=== PATIENT | male | born 1955 | race Caucasian/White ===

== ENCOUNTER 2019-12-14 13:00 | Outpatient (CLI) | payer MEDICARE, OTHER, SELFPAY ==
[2019-12-14 13:41] LABS: Prostate Specific Antigen < 0.02 ng/mL (0-4)
== END 2019-12-14 13:01 | disposition home or self-care (01) ==
LOC: LAB 12-15 08:03
PROVIDERS: Family Provider Family Medicine; PCP Family Medicine; Referring Provider Urology; Visit Provider Radiology Radiation Oncology
DX: C61 Malignant neoplasm of prostate (principal)
CPT/HCPCS: 84153

== ENCOUNTER → 2020-06-15 10:33 | Outpatient (BNVA) | payer MEDICARE, OTHER, SELFPAY | PROVIDERS: Family Provider Family Medicine; PCP Family Medicine; Visit Provider Urology | DX: C61 Malignant neoplasm of prostate (principal); E29.1 Testicular hypofunction | CPT/HCPCS: 81001; 84153 ==

== ENCOUNTER → 2020-12-14 09:54 | Outpatient (BNVA) | payer MEDICARE, OTHER, SELFPAY | PROVIDERS: Family Provider Family Medicine; PCP Family Medicine; Visit Provider Nurse Practitioner Family | DX: E29.1 Testicular hypofunction (principal); C61 Malignant neoplasm of prostate | CPT/HCPCS: 81003; 84153; 84403 ==

== ENCOUNTER → 2021-07-11 08:14 | Outpatient (BNVA) | payer MEDICARE, OTHER, SELFPAY | PROVIDERS: Family Provider Family Medicine; PCP Family Medicine; Visit Provider Urology | DX: C61 Malignant neoplasm of prostate (principal); R39.9 Unspecified symptoms and signs involving the genitourinary system; E29.1 Testicular hypofunction | CPT/HCPCS: 81003; 84403; G0103 ==

== ENCOUNTER → 2022-01-08 09:09 | Outpatient (BNVA) | payer MEDICARE, OTHER, SELFPAY | PROVIDERS: PCP Family Medicine; Visit Provider Urology | DX: C61 Malignant neoplasm of prostate (principal); R39.9 Unspecified symptoms and signs involving the genitourinary system; N32.9 Bladder disorder, unspecified; E29.1 Testicular hypofunction; R31.0 Gross hematuria | CPT/HCPCS: 52000; 81003; 84153; 84403; 99214 ==

== ENCOUNTER 2022-01-17 10:49 | Outpatient (CLI) | payer MEDICARE, OTHER, SELFPAY ==
--- NOTE | 2022-01-17 12:00 | CT_ITS ---
WS: [id number] CT ABDOMEN PELVIS TECHNIQUE: Noncontrast CT of the abdomen and pelvis with coronal and sagittal reformatted images. CLINICAL INFORMATION: PROSTATE CANCER COMPARISON: CT 2016 DLP: 1245.[address] scans at [facility] use at least one of these dose optimization techniques: automated e xposure control; mA and/or kV adjustment per patient size (includes targeted exams where dose is matc hed to clinical indication); or iterative reconstruction. FINDINGS: Noncontrast liver is normal. Prostate calcification. Mild thickening of the seminal vesicles bilater ally. Prostate measures 2.6 x 2.9 CM. No hydronephrosis in RIGHT kidney. RIGHT renal cyst measuring 4 .1 x 4.2 CM. 3.6 mm calculus in the distal RIGHT ureter although no significant ureterectasis or hydr onephrosis. This is new from 2016. LEFT renal peripelvic cyst versus dilated LEFT renal pelvis is unchanged in appearance since 2016. LE FT ureter is decompressed. Bilateral renal cysts. 9 mm RIGHT cortical cyst too small to definitively characterize but may represent hemorrhagic or proteinaceous cyst. Noncontrast bladder appears normal. A few prominent lymph nodes in the kartik hepatis and upper abdome n appear unchanged since 2016. Normal GE junction. Lung bases are well aerated. Adrenal glands are normal. Fatty atrophy of the pancreas. Normal caliber abdominal aorta. Fat-contain ing umbilical hernia is unchanged. Sigmoid diverticulosis. No evidence of acute diverticulitis. Incid ental fat-containing inguinal hernias. Slightly prominent RIGHT inguinal lymph node measuring 12 mm i ndeterminate but may be reactive. No visualized blastic bony lesions. No other significant changes co mpared to previous. CT/CT abdomen pelvis con [id number] IMPRESSION: 1. 3.6 mm calculus in the distal RIGHT ureter proximal to the UVJ is new idonne red to 2016. No significant RIGHT hydronephrosis or ureterectasis. 2. LEFT kidney is unchanged in appearance with LEFT peripelvic cyst or dilated LEFT renal pelvis. This is unchanged 3. Bilateral renal cysts. 4. 9 mm cortical cyst lower pole RIGHT kidney with increased attenuation may b e hemorrhagic or proteinaceous but too small to definitively characterize. 5. Fat-containing umbilical hernia is unchanged. 6. A few prominent lymph nodes in the kartik hepatis and upper abdomen are unch anged since 2016 7. Slightly prominent inguinal lymph node measuring 12 mm indeterminate but ma y be reactive. 8. No other significant findings.
== END 2022-01-17 10:50 | disposition home or self-care (01) ==
LOC: RAD 10:56
PROVIDERS: PCP Family Medicine; Visit Provider Urology
DX: C61 Malignant neoplasm of prostate (principal); N20.1 Calculus of ureter; N28.1 Cyst of kidney, acquired; K42.9 Umbilical hernia without obstruction or gangrene; R39.9 Unspecified symptoms and signs involving the genitourinary system; R31.0 Gross hematuria; N32.9 Bladder disorder, unspecified
CPT/HCPCS: 74176; 81003; 99214

== ENCOUNTER 2022-02-13 12:26 | Inpatient (IN) | payer MEDICARE, OTHER, SELFPAY ==
[2022-02-12 13:32] VITALS: BMI 36.3
[2022-02-13] VITALS (20 sets, daily range): BP systolic 132–200; BP diastolic 83–109; PULSE 69–131; RESP 16–18; TEMP 36.2–36.8; O2SAT 92–98; BMI 36.3
--- NOTE | 2022-02-13 | SCC_ITS ---
Procedure done: 1. Cystoscopy, transurethral section of bladder tumor, left lateral wall, small 2. Right retrograde ureteropyelogram 3. Ureteroscopy, laser lithotripsy and stent 49.7 seconds of fluoroscopic guidance, for a cumulative dose of 20.66 mGy, was provided to Dr. Whipple by the radiology department. C-arm images of the abdomen were saved for the patient's permanent record. [facility]
--- NOTE | 2022-02-13 06:40 | XR_ITS ---
WS: [id number] Exam: XR KUB [id number] Date/Time of Exam: 02/13/2022 6:47 AM Reason For Exam: Right distal ureteral stone No bowel obstruction or free air. Bilateral pelvic calcifications are noted which are nonspecific. No sign of organ enlargement. Degenerative changes and spondylosis of the lower thoracic and lumbar spi ne. XR/XR KUB [id number] IMPRESSION: 1. Nonspecific bilateral pelvic calcifications. 2. No acute abdominal finding.
--- NOTE | 2022-02-13 06:40 | SC_ITS ---
WS: [id number] INTRAOPERATIVE TECHNIQUE: 10 Spot fluoroscopic images for intraoperative purposes. FLUOROSCOPY TIME: 49.7 seconds CLINICAL INFORMATION: Right distal ureteral stone COMPARISON: None. FINDINGS: RIGHT ureteroscopy. Filling defects in the distal RIGHT ureter compatible with previously described c alculi. Deployment of RIGHT double-J ureteral stent. SC/C-arm FL for Urology IMPRESSION: Images obtained for intraoperative purposes.
--- NOTE | 2022-02-13 06:40 | ECG_ITS ---
[facility] Test Date: 2022-02-13 Pat Name: Vicente Cazares Department: Room: Gender: Male [employer]: : 1955 Requested By: Андрей Whipple Order Number: [id number] Dallin MD: Cecil Mathew M.D. Measurements Intervals [place] Rate: 59 P: [place]: QRS: 55 QRSD: 95 T: -18 QT: 429 QTc: 426 Interpretive Statements ATRIAL FIBRILLATION WITH SLOW VENTRICULAR RESPONSE ABNORMAL QRS-T ANGLE [QRS-T AXIS DIFFERENCE > 60] No previous ECG available for comparison Electronically Signed On 02-13-2022 20:18:18 CDT by Cecil Mathew M.D. [id number]
[2022-02-13 07:31] LABS: Glucose Point of Care 187 mg/dL (70-110)
[2022-02-13] MEDS: sodium chloride 0.9% 1,000 ML 30 ML IV (07:31)
[2022-02-13 07:43] LABS: Basophils # 0.1 10^3/uL (0.0-0.1); Basophils % 1.2 %; Eosinophils # 0.2 10^3/uL (0.0-0.8); Hematocrit 39.4 % (42.0-52.0); Hemoglobin 12.7 g/dL (11.7-16.6); Lymphocytes # 1.2 10^3/uL (0.8-4.8); Lymphocytes % 20.6 %; Mean Corpuscular HGB Conc 32.2 g/dL (30.0-36.0); Mean Corpuscular Hemoglobin 29.4 pg (28.0-34.0); Mean Corpuscular Volume 91.2 fl (80-94); Mean Platelet Volume 11.1 fL (7.4-10.4); Monocytes # 0.4 10^3/uL (0.2-0.9); Monocytes % 7.4 %; Neutrophils % 67.4 %; Nucleated Red Blood Cells % 0 %; Platelet Count 213 10^3/cmm (130-400); Red Blood Count 4.32 10^6/uL (4.1-5.3); Red Cell Distribution Width 13.5 % (12.1-15.1); White Blood Count 5.6 10^3/uL (4.0-10.0)
--- NOTE | 2022-02-13 07:45 | ANES.PREANE2 ---
Pre-Anesthetic Assessment Height/Weight: Height 1.77 m Weight 113.398 kg Temp Pulse Resp BP Pulse Ox 97.1 F L 69 16 151/95 97 02/13/22 07:05 02/13/22 07:05 02/13/22 07:05 02/13/22 07:05 02/13/22 07:05 Preop Diagnosis: Bladder lesion Operation Date: 02/13/22 08:10 Proposed Procedures s Transurethral Resection Bladder Tumor(Not Applicable) - Андрей Whipple MD p CYSTOSCOPY TRANSURETHRAL RESECTION OF BLADDER TUMOR 25364/N32.9(Not Applicable) - Андрей Whipple MD Last intake: Intake Last Liquid Date 02/13/22 Last Liquid Time 06:30 Last Solid Date 02/12/22 Last Solid Time 19:30 Medications/Allergies Home Medications Medication Instructions Recorded Confirmed Last Taken Type aspirin 81 mg tablet,delayed 81 mg PO DAILY 12/15/19 02/12/22 02/07/22 History release (Adult Low Dose Aspirin) digoxin 250 mcg (0.25 mg) tablet 250 mcg PO DAILY 12/15/19 02/13/22 02/12/22 History (Digox) diltiazem HCl 240 mg 240 mg PO DAILY 12/15/19 02/13/22 02/12/22 History capsule,extended release 24 hr metoprolol tartrate 100 mg tablet 200 mg PO DAILY 12/15/19 02/13/22 02/12/22 History (Lopressor) quinapril 20 1 tab PO DAILY 12/15/19 02/13/22 02/12/22 History mg-hydrochlorothiazide 12.5 mg tablet simvastatin 20 mg tablet 20 mg PO DAILY 12/15/19 02/13/22 02/12/22 History metformin 500 mg tablet 1,500 mg PO DAILY tab 07/11/21 02/13/22 02/12/22 History warfarin 4 mg tablet 4 mg PO DAILY 07/11/21 02/12/22 02/07/22 History Allergies Allergy/AdvReac Type Severity Reaction Status Date / Time codeine Allergy swelling Verified 02/12/22 13:29 Penicillins Allergy swelling Verified 02/12/22 13:29 Current Medications Generic Name Dose Route Start Last Admin Trade Name Freq PRN Reason Stop Dose Admin Sodium Chloride 1,000 mls @ 30 mls/hr 02/13/22 06:45 02/13/22 07:31 Sodium Chloride 0.9% IV 02/14/22 06:44 30 mls/hr .Q24H LISSETTE Administration PFSH Anesthesia Medical History Hypogonadism male Lower urinary tract symptoms Prostate cancer Surgical History H/O shoulder surgery S/P appendectomy Family History Mother , 80 [place] CAD (coronary artery disease) Father , 62 CAD (coronary artery disease) Social History Smoking and tobacco status: former smoker Alcohol intake: never Adopted: No Caregiver/support person: No Lives independently: No Household members: spouse Marital status: Current occupational status: retired History of recent travel: No Current gender identity: Male Data Anesthesia : 02/13/22 07:19 02/13/22 07:19 Short CBC 02/13/22 Range/Units 07:19 WBC 5.6 (4.0-10.0) 10^3/uL Hgb 12.7 (11.7-16.6) g/dL Hct 39.4 L (42.0-52.0) % MCV 91.2 (80-94) fl Plt Count 213 (130-400) 10^3/cmm Neut % (Auto) 67.4 % Neut # (Auto) 3.80 (1.8-7.7) 10^3/uL Cardiac Studies: No Data to Display
--- NOTE | 2022-02-13 07:49 | ANES.PREANE2 ---
Pre-Anesthetic Assessment Height/Weight: Height 1.77 m Weight 113.398 kg Temp Pulse Resp BP Pulse Ox 97.1 F L 69 16 151/95 97 02/13/22 07:05 02/13/22 07:05 02/13/22 07:05 02/13/22 07:05 02/13/22 07:05 Preop Diagnosis: Bladder lesion Operation Date: 02/13/22 08:10 Proposed Procedures s Transurethral Resection Bladder Tumor(Not Applicable) - Андрей Whipple MD p CYSTOSCOPY TRANSURETHRAL RESECTION OF BLADDER TUMOR 82211/N32.9(Not Applicable) - Андрей Whipple MD Last intake: Intake Last Liquid Date 02/13/22 Last Liquid Time 06:30 Last Solid Date 02/12/22 Last Solid Time 19:30 CV/HEM Atrial Fibb Prostate CA Metabolic DM II, Dyslipidemia Anesthetic Plan ASA status: 3 Medications/Allergies Home Medications Medication Instructions Recorded Confirmed Last Taken Type aspirin 81 mg tablet,delayed 81 mg PO DAILY 12/15/19 02/12/22 02/07/22 History release (Adult Low Dose Aspirin) digoxin 250 mcg (0.25 mg) tablet 250 mcg PO DAILY 12/15/19 02/13/22 02/12/22 History (Digox) diltiazem HCl 240 mg 240 mg PO DAILY 12/15/19 02/13/22 02/12/22 History capsule,extended release 24 hr metoprolol tartrate 100 mg tablet 200 mg PO DAILY 12/15/19 02/13/22 02/12/22 History (Lopressor) quinapril 20 1 tab PO DAILY 12/15/19 02/13/22 02/12/22 History mg-hydrochlorothiazide 12.5 mg tablet simvastatin 20 mg tablet 20 mg PO DAILY 12/15/19 02/13/22 02/12/22 History metformin 500 mg tablet 1,500 mg PO DAILY tab 07/11/21 02/13/22 02/12/22 History warfarin 4 mg tablet 4 mg PO DAILY 07/11/21 02/12/22 02/07/22 History Allergies Allergy/AdvReac Type Severity Reaction Status Date / Time codeine Allergy swelling Verified 02/12/22 13:29 Penicillins Allergy swelling Verified 02/12/22 13:29 Current Medications Generic Name Dose Route Start Last Admin Trade Name Freq PRN Reason Stop Dose Admin Sodium Chloride 1,000 mls @ 30 mls/hr 02/13/22 06:45 02/13/22 07:31 Sodium Chloride 0.9% IV 02/14/22 06:44 30 mls/hr .Q24H LISSETTE Administration PFSH Anesthesia Medical History Hypogonadism male Lower urinary tract symptoms Prostate cancer Surgical History H/O shoulder surgery S/P appendectomy Family History Mother , 80 [place] CAD (coronary artery disease) Father , 62 CAD (coronary artery disease) Social History Smoking and tobacco status: former smoker Alcohol intake: never Adopted: No Caregiver/support person: No Lives independently: No Household members: spouse Marital status: Current occupational status: retired History of recent travel: No Current gender identity: Male Data Anesthesia : 02/13/22 07:19 02/13/22 07:19 Short CBC 02/13/22 Range/Units 07:19 WBC 5.6 (4.0-10.0) 10^3/uL Hgb 12.7 (11.7-16.6) g/dL Hct 39.4 L (42.0-52.0) % MCV 91.2 (80-94) fl Plt Count 213 (130-400) 10^3/cmm Neut % (Auto) 67.4 % Neut # (Auto) 3.80 (1.8-7.7) 10^3/uL Cardiac Studies: No Data to Display
[2022-02-13 08:03] LABS: Anion Gap 15.2 (5-19); Blood Urea Nitrogen 16 mg/dL (8-23); Calcium 9.7 mg/dL (8.5-10.5); Carbon Dioxide 25 mmol/L (22-29); Chloride 99 mmol/L (98-107); Glomerular Filtration Rate 96.1 mL/min (90-130); Glucose 170 mg/dL (65-115); Osmolality Calculated 285 mOsm/kg (285-295); Potassium 4.2 mmol/L (3.5-5.1); Sodium 135 mmol/L (136-145)
--- NOTE | 2022-02-13 08:33 | W.PM.OPSUD ---
Surgery/Procedure H&P Update DATE OF PROCEDURE: February 13, 2022 DATE H&P PERFORMED: 01/17/22 H&P UPDATE INFORMATION: I have reviewed H&P completed within last 30 days, I have examined patient prior to procedure, Changes to prior documentation as noted here and H&P is in [facility] EMR on date indicated CHANGES TO PREVIOUS DOCUMENTATION: KUB today shows what appears to be a stone still in the area of the right distal ureter. Will follow through with cystoscopy retrograde ureteroscopy laser and stent if that is confirmed. PREOP DIAGNOSIS: Bladder lesion PLANNED PROCEDURE: Operation Date: 02/13/22 08:10 Proposed Procedures s Transurethral Resection Bladder Tumor(Not Applicable) - Андрей Whipple MD p CYSTOSCOPY TRANSURETHRAL RESECTION OF BLADDER TUMOR 84302/N32.9(Not Applicable) - Андрей Whipple MD
--- NOTE | 2022-02-13 08:35 | PM.OP ---
Operative Report Date of procedure: February 13, 2022 Pre-op diagnosis: 1. Newly diagnosed bladder 2. Right distal ureteral stone Post-op diagnosis: 1. Newly diagnosed bladder 2. Right distal ureteral stone Procedure done: 1. Cystoscopy, transurethral section of bladder tumor, left lateral wall, small 2. Right retrograde ureteropyelogram 3. Ureteroscopy, laser lithotripsy and stent Specimens removed/disposition: Left lateral wall bladder tumor Pathology: 1. Bladder tumor, left lateral wall 2. Right ureteral stone fragment Surgeon: Sarabjit Anesthesia: General Estimated blood loss: Minimal Urine output: Not measured Complications: None Findings: 1. Left lateral wall lesion completely resected 2. Right retrograde ureteropyelogram demonstrated stone in the expected position 3. Ureteroscopic laser lithotripsy conducted to fragment the stone into small pieces were flushed from the ureter. 4. 7 [place] by 28 cm double-pigtail stent left indwelling at the completion of the procedure Brief History: Mr. Cazares is a delightful 66-year-old white male status post radiation therapy for prostate cancer with good and durable results. Recently developed gross hematuria. Cystoscopy revealed a suspicious area in the left lateral wall most consistent cystoscopically with TCCA but could not rule out radiation changes. He was scheduled for TURBT. In my initial review of the CT scan I failed to notice that he also had a right distal ureteral stone. There were no obstructive changes. The path report revealed this and I reviewed the films and agree. For that reason he has had a cystoscopy retrograde possible ureteroscopy laser and stent added to his procedure. He is unaware of having passed the stone. He has had no renal colicky symptoms on the right side. The finding of the stone is quite definitive on the CT scan though. KUB done right before the procedure seems to imply that there still is a calcification in that area. I reviewed all of this with the patient and his family and consent was modified to reflect the addition of treatment of the stone. We had spoken about that on the phone prior to today. Plan will be to resect the lesion per protocol and then flushed the bladder with sterile water multiple times before progressing to the stone Procedure: After routine preoperative evaluation examination and obtaining of informed consent he was taken to the operating suite on 02/13/2022 where general anesthesia was administered without difficulty after appropriate timeout was performed, SCDs confirmed to be functioning, preoperative antibiotics administered, beta-osmar protocol confirmed. Prepped and draped in usual sterile fashion in dorsolithotomy position paying careful attention to avoiding pressure points. 21 [place] cystoscope with 30 degree lens was introduced into the urethral meatus and advanced into the bladder without difficulty. The bladder was systematically examined and the lesion on the left lateral wall was confirmed. Photodocumentation was obtained. Location: No stones were seen in the bladder. The urethra was then calibrated with Irwin sounds. The more distally urethra was fairly tight but did dilate well up to 30 [place]ib[place]ian. The resectoscope sheath with visual obturator in place was advanced into well-lubricated urethra and into the bladder without difficulty. The gyrus bipolar system was utilized for resection with a super loop and fulguration with the button probe. The lesion was resected down to its base with sampling of the deeper tissue. Button probe was used to obtain meticulous hemostasis. All the resection and fulguration was done well away from the left ureteral orifice. The bladder was then copiously irrigated with sterile water, filled and then emptied several times. Attention was then directed to the right ureter. An 8 [place] cone-tip catheter was attempted to be intubated into the right ureteral orifice for right retrograde ureteropyelogram but could not be easily passed. A flexible tip guidewire was then advanced into the ureteral orifice just a small distance and an open ended ureteral catheter was advanced just inside the tight ureteral orifice wire removed and RETROGRADE ureteropyelogram performed demonstrating: Filling defect in the distal ureter consistent with a stone seen on CT scan and today's KUB. Ureter proximal to that point was somewhat dilated. The ureter distal to the stone was somewhat narrowed. There was mild dilation of the more proximal pyelocalyceal system with no other obvious stones identified Because of the narrowing of the orifice as well as the distal ureter it was decided to Flexible tip guidewire was then advanced up the RIGHT ureter easily bypassing the stone and curling in the area of the upper pole calyx. Distal ureter was then dilated with a 15 [place]ian 4 cm balloon. The balloon and cath scope was removed. The wire secured to the drapes as a safety wire and then a 7 [place]ian offset semirigid ureteroscope was advanced up the right ureter next to the wire to the stone which was encountered in its expected position. There was mild narrowing just distal to the stone as seen on the retrograde but it was bypassable with the scope. The stone appeared to be about 6 mm in size. It was in fragmented with a 200 ?m thulium superpulse laser fiber into sand and very small particles that were flushed from the ureter. Final inspection revealed no additional stones with more proximal passage of the scope. The ureteroscope was removed cystoscope passed into the bladder and the fragments flushed free from the bladder and sent for pathologic evaluation. Cystoscope was then backloaded over the guidewire and a 7 [place]ian by 28 cm double-pigtail stent was advanced over the guidewire through the cystoscope into appropriate position as confirmed via fluoroscopy and cystoscopy. Stent was confirmed to be draining. The bladder carefully inspected. There is no active bleeding at the prior resection site. There was a little bit of oozing from the bladder neck but it was not significant. Bladder drained with a 20 [place]ian three-way Bates catheter with 10 cc placed in the balloon. E flux was clear. Procedure was completed. Tolerated the procedure well without complications and was awakened in the operating room and returned to the recovery room in stable condition. PLANS: 1. Admit to observation status with voiding trial for tomorrow. 2. Will be discharged with stent in place for passive dilation of the right ureter and it will be removed in my office in roughly a week to 10 days 3. No mitomycin planned to avoid retrograde reflux up to right ureteral stent.
[2022-02-13] MEDS: levofloxacin-dextrose 5 % 500 MG/100 ML PREMIX 100 MG IV (08:42)
[2022-02-13] MEDS: lidocaine 2% Urojet 20 mL TOPICAL (09:20)
[2022-02-13] MEDS: iohexol 300 mg/mL 50 mL Btl (OR ONLY) XX (09:40)
--- NOTE | 2022-02-13 13:33 | ANE.PACU2 ---
Inpatient post-anesthesia follow up: Vital signs: Temperature 98.2 F Pulse Rate 89 Respiratory Rate 16 Blood Pressure 146/95 Pulse Oximetry 95 Oxygen Delivery Me thod Room Air Oxygen Flow Rate 6 Fraction of Inspir ed Oxygen Hydration adequate: Yes Nausea and vomiting: No Pain level: 3 Mental status: Baseline
[2022-02-13] MEDS: sodium chloride 0.9% 1,000 ML 50 ML IV (15:31)
[2022-02-13] MEDS: acetaminophen 325 mg Tablet 650 MG PO (15:33)
--- NOTE | 2022-02-13 16:50 | ECG_ITS ---
[facility] Test Date: 2022-02-13 Pat Name: Vicente Cazares Department: Room: 268 Gender: Male Clinical Project Assistant: : 1955 Requested By: Андрей Whipple Order Number: [id number] Dallin MD: Cecil Mathew M.D. Measurements Intervals [place] Rate: 131 P: [place]: QRS: 98 QRSD: 95 T: -30 QT: 285 QTc: 422 Interpretive Statements ATRIAL FIBRILLATION WITH RAPID VENTRICULAR RESPONSE BORDERLINE RIGHT AXIS DEVIATION [QRS AXIS > 90] LOW QRS VOLTAGE IN EXTREMITY LEADS [QRS DEFLECTION < 0.5 mV IN LIMB LEADS] NONSPECIFIC ST & T-WAVE ABNORMALITY Compared to ECG 02/13/2022 07:04:38 Low QRS voltage now present T-wave abnormality now present Electronically Signed On 02-13-2022 20:16:27 CDT by Cecil Mathew M.D. [email or web address] [id number]
[2022-02-13] MEDS: digoxin 250 mcg Tablet PO (17:09)
[2022-02-13] MEDS: dilTIAZem ER (24HR) 240 mg Capsule PO (17:09)
[2022-02-13] MEDS: metformin 500 mg Tablet 1500 MG PO (17:09)
[2022-02-13] MEDS: docusate sodium 100 mg Capsule PO (17:10)
--- NOTE | 2022-02-13 18:52 | PM.CONSULT ---
Providers/Reason For Consult Consulting Physician/Specialty*: Cardiovascular medicine Reason for Consult*: Atrial fibrillation hypertension Requesting Physician: Sarabjit Attending Physician: Андрей Whipple MD Primary Care Provider: Naresh Mcintyre MD History of Present Illness History of Present Illness Vicente Cazares is a 66 year old male with permanent a digoxin, diltiazem and metoprolol. The doses are a little unusual. His metoprolol is metoprolol tartrate 200 mg once a day. I think he manipulates the doses. He is anticoagulated with warfarin. Today he came in for an elective procedure on his bladder. He ended up with a cystoscopy and a transurethral resection of a bladder tumor. He also had a right ureteral stone that underwent lithotripsy and stenting. After the procedure he has been hypertensive and he also has had an increased heart rate and atrial fibrillation. He tells me that his atrial fibrillation is chronic and permanent. He is not particularly symptomatic although he is experiencing a little bit of chest pressure as his blood pressure is 185/100 and his heart rate is about 130. I have asked the nurses to give him 5 mg of metoprolol IV twice about 20 minutes apart. Review of Systems Narrative: Review of symptoms is negative Medications/Allergies Home Medications Medication Instructions Recorded Confirmed Last Taken Type aspirin 81 mg tablet,delayed 81 mg PO DAILY 12/15/19 02/12/22 02/07/22 History release (Adult Low Dose Aspirin) digoxin 250 mcg (0.25 mg) tablet 250 mcg PO DAILY 12/15/19 02/13/22 02/12/22 History (Digox) diltiazem HCl 240 mg 240 mg PO DAILY 12/15/19 02/13/22 02/12/22 History capsule,extended release 24 hr metoprolol tartrate 100 mg tablet 200 mg PO DAILY 12/15/19 02/13/22 02/12/22 History (Lopressor) quinapril 20 1 tab PO DAILY 12/15/19 02/13/22 02/12/22 History mg-hydrochlorothiazide 12.5 mg tablet simvastatin 20 mg tablet 20 mg PO DAILY 12/15/19 02/13/22 02/12/22 History metformin 500 mg tablet 1,500 mg PO DAILY tab 07/11/21 02/13/22 02/12/22 History warfarin 4 mg tablet 4 mg PO DAILY 07/11/21 02/12/22 02/07/22 History Allergies Allergy/AdvReac Type Severity Reaction Status Date / Time codeine Allergy swelling Verified 02/12/22 13:29 Penicillins Allergy swelling Verified 02/12/22 13:29 Current Medications Generic Name Dose Route Start Last Admin Trade Name Freq PRN Reason Stop Dose Admin Acetaminophen 650 mg 02/13/22 13:54 02/13/22 15:33 Acetaminophen 325 Mg Tablet PO 650 mg Q6H PRN Administration MILD PAIN OR INCREASE TEMP Digoxin 250 mcg 02/13/22 18:00 02/13/22 17:09 Digoxin 250 Mcg Tablet PO 250 mcg DAILY LISSETTE Administration Diltiazem HCl 240 mg 02/13/22 18:00 02/13/22 17:09 Diltiazem Er (24hr) 240 Mg Capsule PO 240 mg DAILY LISSETTE Administration Docusate Sodium 100 mg 02/13/22 18:00 02/13/22 17:10 Docusate Sodium 100 Mg Capsule PO 100 mg BID LISSETTE Administration Sodium Chloride 1,000 mls @ 50 mls/hr 02/13/22 13:54 02/13/22 15:31 Sodium Chloride 0.9% IV 50 mls/hr .Q20H LISSETTE Administration Metformin HCl 1,500 mg 02/13/22 18:00 02/13/22 17:09 Metformin 500 Mg Tablet PO 1,500 mg DAILY LISSETTE Administration PFSH Acute PFSH: Medical History (Updated 02/13/22 @ 19:00 by Mike Dennis MD) Diabetes Essential hypertension Hypogonadism male Lower urinary tract symptoms Permanent atrial fibrillation Prostate cancer Warfarin anticoagulation Surgical History H/O shoulder surgery S/P appendectomy Family History Mother , 80 [place] CAD (coronary artery disease) Father , 62 CAD (coronary artery disease) Social History Smoking and tobacco status: former smoker Alcohol intake: never Adopted: No Caregiver/support person: No Lives independently: No Household members: spouse Marital status: Current occupational status: retired History of recent travel: No Current gender identity: Male Vitals/I&O/Wt Last Vital Signs Temp 98.2 F 02/13/22 11:28 Pulse 131 H 02/13/22 17:09 Resp 16 02/13/22 12:58 BP 146/95 02/13/22 12:58 Pulse Ox 95 02/13/22 12:58 02/13/22 02/13/22 02/13/22 06:59 14:59 22:59 Intake Total 650 / 650 313 / 963 Output Total 6555 / 6555 Balance -5905 / -5905 313 / -5592 Weight last 48 hrs Weight 250 lb Weight 250 lb Physical Exam Narrative: GENERAL: He is somewhat uncomfortable but otherwise not in any distress HEENT: Exam within normal limits. NECK: Supple without jugular vein distention. The carotid upstroke is normal without bruits. BACK: Exam normal. LUNGS: Clear. HEART: Irregularly irregular rhythm with tachycardia ABDOMEN: Benign without organomegaly or tenderness. EXTREMITIES: No edema. NEUROLOGIC: Exam normal. SKIN: Unremarkable. Urinary Catheter Management: 3-way Urethral CBI: Cath Placed During This Visit: yes Urinary Catheter Date of Insertion: 02/13/22 Urinary Catheter Time of Insertion: 10:00 Data : 02/13/22 07:19 02/13/22 07:19 A&P Assessment and plan (1) Permanent atrial fibrillation: Status: Acute (2) Essential hypertension: Status: Acute (3) Warfarin anticoagulation: Status: Acute (4) Diabetes: Status: Acute Plan This is currently is hypertensive which worsens the atrial fibrillation rate. As mentioned above, I am given him 2 doses of metoprolol IV. We will continue his other medications as currently prescribed. Those include aspirin, Coumadin, metoprolol, diltiazem and digoxin. We need to split the short acting metoprolol to a twice daily dosing schedule. His EKG shows some nonspecific ST and T wave changes. Once we get his blood pressure and heart rate under control things will settle down. I do not anticipate this lengthening his hospital stay. Coding Level of Care Code New Pt Acute Community Health Nurse Supervisor for Anaid Dick Patient Type New History Detailed Exam Detailed Medical Decision Making Moderate Complexity Diagnoses Permanent atrial fibrillation I48.21 Essential hypertension I10 Warfarin anticoagulation Z79.01 Diabetes E11.9
[2022-02-13] MEDS: ondansetron 2 mg/ML SDV 2 mL 4 MG IVP ×2 (18:53→23:17)
[2022-02-13] MEDS: metoprolol tartrate 1 mg/1 mL SDV 5 mL 5 MG IVP ×2 (19:52→21:00)
--- NOTE | 2022-02-13 20:49 | PC.NURSE ---
THIS PT STARTED COMPLAINING OF SOME CHEST PAIN THIS AFTERNOON AROUND 1700. A SET OF VITALS WERE OBTAINED BY THIS NURSE. THE PTS BLOOD PRESSURE WAS ELEVATED AT 185/100. THIS NURSE OBTAINED A MANUAL B/P AND THE READING WAS 180/92. PT CONTINUED TO COMPLAIN OF CHEST PRESSURE BUT STATED IT WAS NORMAL PRESSURE FOR HIM, THIS IS HOW HE FEELS WHEN HE LAYS ON HIS BACK. AN EKG WAS OBTAINED AND IT SHOWED THE PT TO BE IN AFIB WITH RVR. THE DOCTOR WAS NOTIFIED. HE SAID TO GO AHEAD AND GIVE THE PTS HIS MEDICATIONS AND THEN RECHECK VITALS. BLOOD PRESSURE HAD INCREASED TO 184/113. DR ALARCON CAME UP TO SEE THE PT AND CONSULTED CARDIOLOGY. CARDIOLOGY WAS UP HERE SHORTLY AFTER CONSULTATION. AN ORDER FOR 5MG OF METOPROLOL WAS ORDERED FOLLOWED BY ANOTHER 5MG 20-30 MINUTES AFTER DEPENDING ON VITAL SIGNS. THIS NURSE ASKED FOR ICU DIRECTOR CHECK TO WATCH PT ON TELE WHILE THIS NURSE PUSHED THE FIRST DOSE OF METOPROLOL AT 1952. PTS BLOOD PRESSURE WAS RECHECKED AND IS STILL ELEVATED AT 199/97. THIS NURSE IS GETTING READY TO PUSH THE SECOND DOSE OF 5MG PER DR TSANG. WILL CONTINUE TO MONITOR. PTS URINE IS LOOKING WELL AND PT IS TOLERATING CBI WELL. PTS URINE IS A LIGHT PINK COLOR. THIS NURSE HAS THE CBI TURNED DOWN MUCH POSSIBLE. PT HAS MINIMAL COMPLAINTS OF DISCOMFORT. PT HAS ADEQUATE I&O. TOTAL AMOUNT OF CBI GIVEN ON THIS NURSES SHIFT WAS 18,000 ,ML. PTS TOTAL OUTPUT WAS 20,300 ML.
[2022-02-13] MEDS: metoprolol tartrate 50 mg Tablet 100 MG PO (23:11)
[2022-02-13] MEDS: atorvastatin 40 mg Tablet PO (23:11)
[2022-02-13] MEDS: ibuprofen 600 mg Tablet PO (23:12)
[2022-02-14] VITALS (20 sets, daily range): BP systolic 121–213; BP diastolic 74–125; PULSE 73–97; RESP 16–20; TEMP 36.8–37.1; O2SAT 92–96
[2022-02-14] MEDS: promethazine 25 mg Supp PR ×2 (00:33→11:13)
--- NOTE | 2022-02-14 06:21 | P.PN_ITS ---
Subjective Subjective: Vicente has had an uneventful night. He feels better. I gave him 2 doses of intravenous metoprolol which brought his heart rate down under 100. He is still mildly hypertensive. As of this morning he was still 181/96. His heart rate is running in the 80s and 90s. Vitals/I&O/Wt Last Vital Signs Temp 98.5 F 02/14/22 04:00 Pulse 91 02/14/22 05:49 Resp 17 02/14/22 04:00 BP 181/96 02/14/22 04:00 Pulse Ox 95 02/14/22 04:00 02/13/22 02/13/22 02/14/22 14:59 22:59 06:59 Intake Total 650 / 650 313 / 963 120 / 1083 Output Total 6555 / 6555 0 / 6555 Balance -5905 / -5905 313 / -5592 120 / -5472 Weight last 48 hrs Weight 262 lb Weight 250 lb Weight 250 lb Physical Exam Narrative: GENERAL: In general he is more comfortable this morning HEENT: Exam within normal limits. NECK: Supple without jugular vein distention. The carotid upstroke is normal without bruits. BACK: Exam normal. LUNGS: Clear. HEART: Irregularly irregular rhythm ABDOMEN: Benign without organomegaly or tenderness. EXTREMITIES: No edema. NEUROLOGIC: Exam normal. SKIN: Unremarkable. Urinary Catheter Management: 3-way Urethral CBI: Cath Placed During This Visit: yes Reason for Continuing Indwelling Catheter: Other Urinary Catheter Date of Insertion: 02/13/22 Urinary Catheter Time of Insertion: 10:00 Data : 02/13/22 07:19 02/13/22 07:19 A&P Assessment and plan (1) Diabetes: Status: Acute (2) Warfarin anticoagulation: Status: Acute (3) Essential hypertension: Status: Acute (4) Permanent atrial fibrillation: Status: Acute Plan He may be discharged from my standpoint when okay with Dr. Whipple. As it pertains to his medications. He should be taking the metoprolol tartrate 100 mg twice daily. He has been taking it 200 mg once at night. The drug is short acting and is not doing him as much good if he is taking it only once a day. I spoke to him and his about this. His digoxin, diltiazem, warfarin, NARCISO inhibitor with thiazide diuretic, statin and aspirin should all be continued as previously prescribed. I offered him follow-up in the cardiology clinic. He has chosen to continue to follow with Dr. Mcintyre and only see the automobile service advisor if necessary. I am hoping his blood pressure will come back down once things settle down. Attestations Medical Necessity Statement*: Able to be discharged from cardiology viewpoint. Coding Level of Care Code Established Pt Acute Surveillance Dual Rate Officer for Anaid Dick Patient Type Established History Detailed Exam Detailed Medical Decision Making Moderate Complexity Diagnoses Diabetes E11.9 Warfarin anticoagulation Z79.01 Essential hypertension I10 Permanent atrial fibrillation I48.21
[2022-02-14] MEDS: ondansetron 2 mg/ML SDV 2 mL 4 MG IVP ×3 (08:39→17:08)
[2022-02-14 08:41] LABS: Glucose Point of Care 193 mg/dL (70-110)
[2022-02-14] MEDS: docusate sodium 100 mg Capsule PO ×2 (09:02→17:08)
[2022-02-14] MEDS: dilTIAZem ER (24HR) 240 mg Capsule PO (09:02)
[2022-02-14] MEDS: digoxin 250 mcg Tablet PO (09:03)
[2022-02-14] MEDS: metformin 500 mg Tablet 1500 MG PO (09:03)
[2022-02-14] MEDS: hydroCHLOROthiazide 25 mg Tablet 12.5 MG PO (09:03)
[2022-02-14] MEDS: metoprolol tartrate 50 mg Tablet 100 MG PO ×2 (09:03→19:57)
[2022-02-14] MEDS: lisinopril 20 mg Tablet PO (09:04)
[2022-02-14] MEDS: metoclopramide 5 mg/mL SDV 2 mL 10 MG IVP (09:58)
--- NOTE | 2022-02-14 10:44 | PC.CHAP ---
Pastoral Care Encounter/Spiritual Assessment Type of Contact [] Declined patient companion visit [] Patient/Family/Request visit [] Outpatient visit [] Follow-up visit [] Physician referral [] Code/Alert [] Routine visit [] Staff referral [] Actively dying [] Patient sleeping [] Family support [] [] Out of room [] Palliative care [] [] Receiving care in room [] Pre-surgical visit [] Trauma [] Long length of stay [] ICU visit [x] Other: Isolation Relational/Emotional Strength [] Patient feels connected with others/family/visitors/staff [] Distress [] Loneliness/isolation [] Abandonment Spirituality of Patient [] Person of Liana [] Attends Tenriism of their Liana [] Believes in Prayer [] Reads Bible or Adventist materials [] There are Spiritual issues to be addressed Beader Tender Interventions [] Prayer [] Active listening [] Non-anxious presence [] Spiritual/emotional support [] Crisis/trauma care [] Spiritual counseling [] Bereavement support [] Provided bereavement packet [] Provided Bible/devotional materials [] Provided toy/stuffed animal, coloring book to patient or family member [] Provided Communion [] Anointing/[place] [] Salvation [] Completed spiritual assessment [] Other: Impact on Illness or Injury [] Angry [] Fearful [] Anxious [] Often cries [] Exhaustion [] Unable to work [] Unable to attend restoration [] Unable to walk/stand [] Unable to read [] Unable to drive [] Unable to eat/drink [] Unable to sleep [] Unable to be with family [] Patient intubated [] Other: Summary Isolation Time spent with patient 5 mins
[2022-02-14] MEDS: morphine 4 mg/mL SDV 1 mL 2 MG IVP ×4 (11:12→19:56)
[2022-02-14] MEDS: sodium chloride 0.9% 1,000 ML 50 ML IV (11:21)
[2022-02-14] MEDS: metoprolol tartrate 1 mg/1 mL SDV 5 mL 5 MG IVP (12:31)
--- NOTE | 2022-02-14 12:41 | PC.NURSE ---
Blood pressure was 204/100 before Metoprolol 5mg IVP was ordered. IVP was given and Blood pressure was 159/79 pulse 75 and rhythm was afib immediately after Metoprolol administration.
[2022-02-14] MEDS: hyDRALAzine 20 mg/mL INJ 1 mL 10 MG IVP (14:35)
--- NOTE | 2022-02-14 18:08 | PM.PN ---
Subjective Subjective: Urology follow-up postop day #1 Rough night with hypertension atrial fibrillation with rapid ventricular response. Dr. Dennis was consulted and was been actively involved in controlling both. Having typical stent symptoms after the catheter was removed this morning. Multiple PVRs were checked with flow volume. Experiencing urgency frequency and sometimes urgency incontinence on the way to the bathroom. No fever or chills. Has been having intermittent nausea and vomiting of unclear etiology. Patient is being kept in the hospital again tonight because of the persistence of symptoms, need for IV hydration, and continued close monitoring and treatment of hypertension. Vitals/I&O/Wt Last Vital Signs Temp 98.7 F 02/14/22 16:00 Pulse 80 02/14/22 16:00 Resp 16 02/14/22 17:07 BP 198/98 02/14/22 16:00 Pulse Ox 96 02/14/22 16:00 02/14/22 02/14/22 02/14/22 06:59 14:59 22:59 Intake Total 120 / 1083 1050.834 / 1050.834 Output Total 0 / 6555 750 / 750 Balance 120 / -5472 300.834 / 300.834 Weight last 48 hrs Weight 262 lb Weight 250 lb Physical Exam Narrative: No acute distress Unlabored respiration Comfortable Good range of motion of extremities Urinary Catheter Management: 3-way Urethral CBI: Cath Placed During This Visit: yes, but has since been removed by the nurse Reason for Continuing Indwelling Catheter: Decision to DC Catheter Urinary Catheter Date of Insertion: 02/13/22 Urinary Catheter Time of Insertion: 10:00 Date Urinary Catheter Removed: 02/14/22 Time Urinary Catheter Discontinued: 06:55 Data : 02/13/22 07:19 02/13/22 07:19 A&P Assessment and plan (1) Lesion of bladder: Status: Acute (2) Permanent atrial fibrillation: Status: Acute (3) Essential hypertension: Status: Acute (4) Diabetes: Status: Acute (5) Retained ureteral stent: Status: Acute (6) Right ureteral calculus: Status: Resolved (7) Prostate cancer: Status: Acute Plan Trial of oral narcotics In and out catheterization as needed Placed on inpatient status due requirement of medical care crossing 2 midnights Attestations Medical Necessity Statement*: Persistent hypertension, nausea and vomiting, and improving A. fib with rapid ventricular response. Not yet able to manage symptoms at home. Coding Level of Care Code Acute Agricultural Education Teacher for Chg Fwd Diagnoses Essential hypertension I10 Diabetes E11.9 Permanent atrial fibrillation I48.21 Retained ureteral stent Z96.0 Lesion of bladder N32.9 Right ureteral calculus N20.1 Prostate cancer C61
[2022-02-14] MEDS: atorvastatin 40 mg Tablet PO (19:57)
[2022-02-15] VITALS: BP 165/89; PULSE 67; RESP 18; TEMP 36.5; O2SAT 95
[2022-02-15 04:00] VITALS: BP 134/75; PULSE 68; RESP 18; TEMP 36.5; O2SAT 95
[2022-02-15] MEDS: sodium chloride 0.9% 1,000 ML 50 ML IV (06:25)
[2022-02-15 06:42] VITALS: PULSE 61
[2022-02-15 07:05] VITALS: BP 174/73; PULSE 94; RESP 18; TEMP 36.8; O2SAT 91
--- NOTE | 2022-02-15 07:58 | P.PN_ITS ---
Subjective Subjective: Vicente has improved overnight. His heart rate is still under good control. His blood pressure has come down. The nausea has resolved. He is ready to go home today. Vitals/I&O/Wt Last Vital Signs Temp 98.2 F 02/15/22 07:05 Pulse 94 02/15/22 07:05 Resp 18 02/15/22 07:05 BP 174/73 02/15/22 07:05 Pulse Ox 91 02/15/22 07:05 02/14/22 02/15/22 02/15/22 22:59 06:59 14:59 Intake Total 1433.333 / 2484.167 Output Total 500 / 1250 2200 / 3450 Balance -500 / -199.166 -766.667 / -965.833 Weight last 48 hrs Weight 262 lb Weight 250 lb Physical Exam Narrative: GENERAL: In general he looks and feels well this morning HEENT: Exam within normal limits. NECK: Supple without jugular vein distention. The carotid upstroke is normal without bruits. BACK: Exam normal. LUNGS: Clear. HEART: Irregular rate and rhythm ABDOMEN: Benign without organomegaly or tenderness. EXTREMITIES: No edema. NEUROLOGIC: Exam normal. SKIN: Unremarkable. Urinary Catheter Management: 3-way Urethral CBI: Cath Placed During This Visit: yes, but has since been removed by the nurse Reason for Continuing Indwelling Catheter: Decision to DC Catheter Urinary Catheter Date of Insertion: 02/13/22 Urinary Catheter Time of Insertion: 10:00 Date Urinary Catheter Removed: 02/14/22 Time Urinary Catheter Discontinued: 06:55 Data : 02/13/22 07:19 02/13/22 07:19 A&P Assessment and plan (1) Gross hematuria: Status: Acute (2) Lesion of bladder: Status: Acute (3) Permanent atrial fibrillation: Status: Acute (4) Essential hypertension: Status: Acute (5) Warfarin anticoagulation: Status: Acute Plan He may go home today. Continue medications as currently prescribed. No bolus dose of warfarin just started on the regular dosing schedule. I suggested he get into see one of the social media content manager routinely. I will try to make that appointment for him. Attestations Medical Necessity Statement*: Ready to go home today. Coding Level of Care Code Established Pt Acute Marketing Specialist for Anaid Dick Patient Type Established History Detailed Exam Detailed Medical Decision Making Moderate Complexity Diagnoses Gross hematuria R31.0 Lesion of bladder N32.9 Permanent atrial fibrillation I48.21 Essential hypertension I10 Warfarin anticoagulation Z79.01
[2022-02-15] MEDS: HYDROcodone-acetaminophen 5-325 mg Tablet 1 TAB PO (08:26)
[2022-02-15 08:27] VITALS: PULSE 94
[2022-02-15] MEDS: docusate sodium 100 mg Capsule PO (08:27)
[2022-02-15] MEDS: hydroCHLOROthiazide 25 mg Tablet 12.5 MG PO (08:27)
[2022-02-15] MEDS: metformin 500 mg Tablet 1500 MG PO (08:27)
[2022-02-15] MEDS: lisinopril 20 mg Tablet PO (08:27)
[2022-02-15] MEDS: metoprolol tartrate 50 mg Tablet 100 MG PO (08:27)
[2022-02-15] MEDS: digoxin 250 mcg Tablet PO (08:27)
[2022-02-15] MEDS: dilTIAZem ER (24HR) 240 mg Capsule PO (08:27)
[2022-02-15 11:17] VITALS: PULSE 94
--- NOTE | 2022-02-15 11:18 | PC.NURSE ---
patient verbalized understanding of discharge instructions, home medications, and follow up appointments. cage cashier removed and returned to monitor room. pt wheeled out by LUCILLE.
[2022-02-18 03:59] LABS: Stone Source KIDNEY STONE
--- NOTE | 2022-02-20 16:53 | P.DS_ITS ---
Discharge Providers Date of Admission: 02/14/22 18:15 Date of Discharge: February 20, 2022 Attending Provider at Admission: Андрей Whipple MD Attending Provider at Discharge: Андерй Whipple MD Primary Care Provider: Naresh Mcintyre MD Diagnoses at Discharge Discharge Diagnosis (1) Lesion of bladder: Status: Acute (2) Permanent atrial fibrillation: Status: Acute (3) Essential hypertension: Status: Acute (4) Warfarin anticoagulation: Status: Acute Hospital Course Hospital Course He was admitted on 02/13/2022 for resection of suspicious lesion on the left posterolateral aspect of the bladder worrisome for TCCA but could not rule out radiation cystitis. He was also recently diagnosed with a right ureteral stone on CT scan. Plan was to perform resection and also treat the stone. The procedure went well on day of admission. Area of suspicion was resected. The stone was treated with endoscopic laser lithotripsy and stent. Postoperatively he had issues related to hypertension and will atrial f ibrillation with rapid ventricular response. The RVR was a new finding. Cardiology was consulted Dr. Dennis manage the cardiac issues and ultimately on postoperative day 2 the patient was felt to be a good candidate for discharge. After his catheter was removed he voided well. Urine cleared appropriately. No significant bleeding. Thought that he was emptying adequate volumes and bladder scan showed adequate emptying. Physical Exam Narrative: Alert and oriented no acute distress Neck good range of motion Respiration unlabored no audible wheezes Irregular rhythm Abdomen soft nontender no palpable masses or organomegaly Normal genitourinary exam Good range of motion of extremities. No neurologic defects. No abnormal bruising or bleeding Urinary Catheter Management: 3-way Urethral CBI: Cath Placed During This Visit: yes, but has since been removed by the nurse Reason for Continuing Indwelling Catheter: Decision to DC Catheter Urinary Catheter Date of Insertion: 02/13/22 Urinary Catheter Time of Insertion: 10:00 Date Urinary Catheter Removed: 02/14/22 Time Urinary Catheter Discontinued: 06:55 Discharge Data Studies Completed and Pending Completed Studies During Hospitalization Category Date Time Status XR KUB [id number] Routine Exams 02/13/22 06:40 Completed Pathology: Surgical [PTH] Routine Pth 02/13/22 10:49 Completed Radiology Impressions C-Arm Fluoroscopy 02/13/22 06:40 IMPRESSION: Images obtained for intraoperative purposes. KUB X-Ray 02/13/22 06:40 IMPRESSION: 1. Nonspecific bilateral pelvic calcifications. 2. No acute abdominal finding. Laboratory Results WBC 5.6 10^3/uL (4.0-10.0) 02/13/22 07:19 RBC 4.32 10^6/uL (4.1-5.3) 02/13/22 07:19 Hgb 12.7 g/dL (11.7-16.6) 02/13/22 07:19 Hct 39.4 % (42.0-52.0) L 02/13/22 07:19 MCV 91.2 fl (80-94) 02/13/22 07:19 MCH 29.4 pg (28.0-34.0) 02/13/22 07:19 MCHC 32.2 g/dL (30.0-36.0) 02/13/22 07:19 RDW 13.5 % (12.1-15.1) 02/13/22 07:19 Plt Count 213 10^3/cmm (130-400) 02/13/22 07:19 MPV 11.1 fL (7.4-10.4) H 02/13/22 07:19 Neut % (Auto) 67.4 % 02/13/22 07:19 Lymph % (Auto) 20.6 % 02/13/22 07:19 [place] % (Auto) 7.4 % 02/13/22 07:19 Eos % (Auto) 3.0 % 02/13/22 07:19 Baso % (Auto) 1.2 % 02/13/22 07:19 Neut # (Auto) 3.80 10^3/uL (1.8-7.7) 02/13/22 07:19 Lymph # (Auto) 1.2 10^3/uL (0.8-4.8) 02/13/22 07:19 [place] # (Auto) 0.4 10^3/uL (0.2-0.9) 02/13/22 07:19 Eos # (Auto) 0.2 10^3/uL (0.0-0.8) 02/13/22 07:19 Baso # (Auto) 0.1 10^3/uL (0.0-0.1) 02/13/22 07:19 Nucleated RBC % (auto) 0 % 02/13/22 07:19 Nucleated RBCs # 0.0 /100WBC 02/13/22 07:19 Sodium 135 mmol/L (136-145) L 02/13/22 07:19 Potassium 4.2 mmol/L (3.5-5.1) 02/13/22 07:19 Chloride 99 mmol/L (98-107) 02/13/22 07:19 Carbon Dioxide 25 mmol/L (22-29) 02/13/22 07:19 Anion Gap 15.2 (5-19) 02/13/22 07:19 BUN 16 mg/dL (8-23) 02/13/22 07:19 Creatinine 0.8 mg/dL (0.7-1.2) 02/13/22 07:19 GFR Calculation 96.1 mL/min (90-130) 02/13/22 07:19 Glucose 170 mg/dL (65-115) H 02/13/22 07:19 POC Glucose 193 mg/dL (70-110) H 02/14/22 08:37 Calculated Osmolality 285 mOsm/kg (285-295) 02/13/22 07:19 Calcium 9.7 mg/dL (8.5-10.5) 02/13/22 07:19 Stone Source Kidney stone 02/13/22 10:10 Stone Weight 0.009 g 02/13/22 10:10 Vitals Last Vital Signs Temp 98.2 F 02/15/22 07:05 Pulse 94 02/15/22 11:17 Resp 18 02/15/22 07:05 BP 174/73 02/15/22 07:05 Pulse Ox 91 02/15/22 07:05 Discharge Plan Discharge Patient Disposition: Home Condition: Stable Prescriptions: New hydrocodone-acetaminophen 5-325 mg tablet 1 tab PO Q8H PRN (Reason: pain) Qty: 12 0RF Continued quinapril-hydrochlorothiazide 20-12.5 mg tablet 1 tab PO DAILY 0RF aspirin [Adult Low Dose Aspirin] 81 mg tablet,delayed release (DR/EC) 81 mg PO DAILY 0RF simvastatin 20 mg tablet 20 mg PO DAILY 0RF metoprolol tartrate [Lopressor] 100 mg tablet 200 mg PO DAILY 0RF diltiazem HCl 240 mg capsule,extended release 24hr 240 mg PO DAILY 0RF digoxin [Digox] 250 mcg (0.25 mg) tablet 250 mcg PO DAILY 0RF metformin 500 mg tablet 1,500 mg PO DAILY 0RF warfarin 4 mg tablet 4 mg PO DAILY 0RF Label Comments: 4MG DAILY FRIDAY TAKES 8MG Rx Instructions: TAKE 4MG DAILY, WEDNESDAYS ONLY TAKE (2) 4MG TABS. Discharge Orders: Discharge Order (Routine); Ordered 02/15/22 Ordered By: Андрей Whipple Referrals: Андрей Whipple MD [Physician] - 4-7 days (Cystoscopy, ureteral stent removal. Dr. Whipple's office will call with appointment information ) Jordan Chavez M.D [Physician] - 04/15/22 3:45 am (Follow-up of hospital v [facility]. Patient needs a gasoline tractor operator.) Naresh Mcintyre MD [Primary Care Provider] - 02/22/22 3:00 pm Discharge Diet: Usual diet Discharge Activity: Limit activity as instructed Patient Instructions: Atrial Fibrillation, Cystoscopy, Hydrocodone/Acetaminophen (By mouth), Transurethral Resection of Bladder Tumors (DC), Opioid Safety Activity Restrictions/Additional Instructions: No lifting >10 pounds for at least 3 weeks. Discharge Attestations Time Spent in Discharge Care*: greater than 30 min Quality Metrics Clinical Quality Measures [ No reported AMI, CVA or VTE this stay] Coding Level of Care Code Acute Chg FW DC note Diagnoses Lesion of bladder N32.9 Permanent atrial fibrillation I48.21 Essential hypertension I10 Warfarin anticoagulation Z79.01
== END 2022-02-15 10:20 | disposition home or self-care (01) | DRG 660 ==
LOC: MEDSURG 02-14 08:04
PROVIDERS: Admitting Provider Urology; PCP Family Medicine; Visit Provider Urology
PROC: 0TBB8ZZ Excision of Bladder, Via Natural or Artificial Opening Endoscopic (ICD-10-PCS; principal; 2022-02-13 08:10)
PROC: 0TJB8ZZ Inspection of Bladder, Via Natural or Artificial Opening Endoscopic (ICD-10-PCS; CPT 52000; 2022-02-13 08:10)
PROC: 0TJ98ZZ Inspection of Ureter, Via Natural or Artificial Opening Endoscopic (ICD-10-PCS; CPT 52351; 2022-02-13 08:10)
PROC: 0T768DZ Dilation of Right Ureter with Intraluminal Device, Via Natural or Artificial Opening Endoscopic (ICD-10-PCS; 2022-02-13 08:10)
PROC: 0T768DZ Dilation of Right Ureter with Intraluminal Device, Via Natural or Artificial Opening Endoscopic (ICD-10-PCS; CPT 50605; 2022-02-13 08:10)
DX: N30.41 Irradiation cystitis with hematuria (principal); N20.1 Calculus of ureter; I48.21 Permanent atrial fibrillation; W88.1XXS Exposure to radioactive isotopes, sequela; Z85.46 Personal history of malignant neoplasm of prostate; Z87.891 Personal history of nicotine dependence; N32.9 Bladder disorder, unspecified; Z92.3 Personal history of irradiation; I10 Essential (primary) hypertension; E11.9 Type 2 diabetes mellitus without complications; E29.1 Testicular hypofunction
CPT/HCPCS: 36415; 36416; 51798; 74018; 76000; 80048; 82365; 82962; 85025; 88300; 88305; 93005; C2625; G0378; J0330; J0360; J1100; J1956; J2270; J2405; J2704; J2765; J3010; J3490; J7030; J8498

== ENCOUNTER → 2022-02-22 12:03 | Outpatient (BNVA) | payer MEDICARE, OTHER, SELFPAY | PROVIDERS: PCP Family Medicine; Visit Provider Urology | DX: C61 Malignant neoplasm of prostate (principal); R39.9 Unspecified symptoms and signs involving the genitourinary system; N20.9 Urinary calculus, unspecified; N30.40 Irradiation cystitis without hematuria; Z96.0 Presence of urogenital implants | CPT/HCPCS: 52310; 81003; 99213 ==

== ENCOUNTER → 2022-04-15 16:00 | Outpatient (BNVA) | payer MEDICARE, OTHER, SELFPAY | PROVIDERS: PCP Family Medicine; Visit Provider Internal Medicine | DX: I48.21 Permanent atrial fibrillation (principal); Z79.01 Long term (current) use of anticoagulants; E11.9 Type 2 diabetes mellitus without complications; I10 Essential (primary) hypertension; Z79.84 Long term (current) use of oral hypoglycemic drugs | CPT/HCPCS: 99213; 99214 ==

== ENCOUNTER → 2022-04-30 10:27 | Outpatient (BNVA) | payer MEDICARE, OTHER, SELFPAY | PROVIDERS: PCP Family Medicine; Visit Provider Family Medicine | DX: C61 Malignant neoplasm of prostate (principal); E11.9 Type 2 diabetes mellitus without complications; I10 Essential (primary) hypertension; Z13.220 Encounter for screening for lipoid disorders; Z13.6 Encounter for screening for cardiovascular disorders; Z76.89 Persons encountering health services in other specified circumstances; Z79.01 Long term (current) use of anticoagulants; C44.91 Basal cell carcinoma of skin, unspecified | CPT/HCPCS: 80053; 80061; 83036; 84153; 84443; 85025 ==

== ENCOUNTER 2022-06-24 14:23 | Outpatient (CLI) | payer MEDICARE, OTHER, SELFPAY ==
--- NOTE | 2022-06-24 14:30 | USCV_ITS ---
Vicente Cazares Age: 66 Gender: M : 1955 Exam Date: 06/24/2022 14:44 Ordering Phys: Jordan Chavez M.D ([email or web address]) Technologist: Marek Villela Exam Location: [facility] [place] Indication: mumur BP: 132 / 74 HR: 61 Rhythm: Sinus Technical Quality: Adequate MEASUREMENTS (Male / Female) Normal Values 2D ECHO LV Diastolic Diameter PLAX 4.2 cm 4.2 - 5.9 / 3.9 - 5.3 cm LV Systolic Diameter PLAX 3.1 cm IVS Diastolic Thickness 1.3 cm 0.6 - 1.0 / 0.6 - 0.9 cm IVS Systolic Thickness 1.8 cm LVPW Diastolic Thickness 1.3 cm 0.6 - 1.0 / 0.6 - 0.9 cm LVPW Systolic Thickness 1.5 cm LVOT Diameter 2.0 cm LV Ejection Fraction 2D Teich 33.9 % LA Diameter 5.0 cm Aorta at Sinotubular Diameter 3.5 cm IVC Diameter 2.8 cm M-MODE Aortic Annulus Diameter 4.0 cm LA Ao Ratio MM 1.3 MV E Point Septal Separation 0.9 cm DOPPLER AV Peak Velocity 280.0 cm/s LVOT Peak Velocity 192.0 cm/s AV Area Cont Eq vti 2.6 cm squared AV Area Cont Eq pk 2.3 cm squared MV Area PHT 5.0 cm squared Mitral E to A Ratio 3.3 MV E' Velocity 79.5 cm/s Mitral E to MV E' Ratio 11.2 Mitral E to LV E' Lateral Ratio 10.5 Mitral E to LV E' Septal Ratio 12.2 TR Peak Velocity 284.5 cm/s TR Peak Gradient 32.4 mmHg TV Peak E Velocity 147.0 cm/s Right Atrial Pressure 3.0 mmHg Pulmonary Artery Systolic Pressu 35.4 mmHg PV Peak Velocity 106.0 cm/s RV Acceleration Time 0.1 s FINDINGS Left Ventricle Left ventricle is normal in size. LV systolic function is normal with EF of 55 to 60%. No regional wall motion abnormalities are seen. Right Ventricle Normal in size Right Atrium Normal in size Left Atrium Dilated Mitral Valve Moderate mitral annular calcification is seen. Mild mitral regurgitation. Aortic Valve Grossly thickened valve. Mild aortic stenosis with aortic valve area of 1.3 cm squared and mean gradient across arctic valve of 11.3 mmHg. Tricuspid Valve Trace tricuspid regurgitation. Insufficient TR jet to calculate RVSP Pulmonic Valve Not well-visualized Pericardium Normal Aorta Normal in size IVC Appears to be normal CONCLUSIONS LV systolic function is normal with EF 55 to 60%. Left atrial enlargement Moderate mitral annular calcification seen. Mild mitral regurgitation Mild aortic stenosis with aortic valve area 1.3 cm squared and mean gradient across arctic valve of 11.3 mmHg No comparison studies are available Jordan Chavez MD (Electronically Signed) Final Date: 27 June 2022 19:50 S
== END 2022-06-24 14:24 | disposition home or self-care (01) ==
LOC: RAD 14:24
PROVIDERS: PCP Family Medicine; Visit Provider Internal Medicine
DX: R06.02 Shortness of breath (principal); R01.1 Cardiac murmur, unspecified; I35.0 Nonrheumatic aortic (valve) stenosis; I34.0 Nonrheumatic mitral (valve) insufficiency
CPT/HCPCS: 93306

== ENCOUNTER 2022-08-22 13:57 | Outpatient (CLI) | payer MEDICARE, OTHER, SELFPAY ==
--- NOTE | 2022-08-22 15:05 | XR_ITS ---
WS: [id number] KUB, AP view, 08/22/2022 Clinical Data: Urolithiasis Comparison: KUB, 02/13/2022 Findings: No abnormal intraabdominal masses or calcifications are seen. There is no dilatated small bowel or ev idence of obstruction. 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 XR/XR KUB [id number] Impression: Negative KUB.
== END 2022-08-22 13:58 | disposition home or self-care (01) ==
LOC: RAD 14:02
PROVIDERS: PCP Family Medicine; Visit Provider Urology
DX: C67.9 Malignant neoplasm of bladder, unspecified (principal); N30.40 Irradiation cystitis without hematuria; N20.9 Urinary calculus, unspecified
CPT/HCPCS: 52000; 74018; 81003

== ENCOUNTER → 2022-09-10 10:33 | Outpatient (BNVA) | payer MEDICARE, OTHER, SELFPAY | PROVIDERS: PCP Family Medicine; Visit Provider Family Medicine | DX: I10 Essential (primary) hypertension (principal); I48.21 Permanent atrial fibrillation; E78.2 Mixed hyperlipidemia; E11.9 Type 2 diabetes mellitus without complications; K46.9 Unspecified abdominal hernia without obstruction or gangrene | CPT/HCPCS: 80053; 83036 ==

== ENCOUNTER → 2022-09-18 13:50 | Outpatient (BNVA) | payer MEDICARE, OTHER, SELFPAY | PROVIDERS: PCP Family Medicine; Visit Provider Dermatology | DX: D48.9 Neoplasm of uncertain behavior, unspecified (principal); L57.0 Actinic keratosis; Z85.820 Personal history of malignant melanoma of skin; Z12.83 Encounter for screening for malignant neoplasm of skin; L81.4 Other melanin hyperpigmentation; L82.1 Other seborrheic keratosis; B35.1 Tinea unguium | CPT/HCPCS: 88305 ==

== ENCOUNTER → 2022-12-09 10:03 | Outpatient (BNVA) | payer MEDICARE, OTHER, SELFPAY | PROVIDERS: PCP Family Medicine; Visit Provider Family Medicine | DX: E11.9 Type 2 diabetes mellitus without complications (principal) | CPT/HCPCS: 83036 ==

== ENCOUNTER → 2023-01-13 15:26 | Outpatient (BNVA) | payer MEDICARE, OTHER, SELFPAY | PROVIDERS: PCP Family Medicine; Visit Provider Internal Medicine | DX: I48.21 Permanent atrial fibrillation (principal); E11.9 Type 2 diabetes mellitus without complications; I10 Essential (primary) hypertension; Z79.01 Long term (current) use of anticoagulants; Z79.84 Long term (current) use of oral hypoglycemic drugs | CPT/HCPCS: 99214 ==

== ENCOUNTER 2023-02-12 13:41 | Outpatient (CLI) | payer MEDICARE, OTHER, SELFPAY ==
[2023-02-12 14:31] LABS: PSA Screen - Urology 0.04 ng/mL (0-4)
== END 2023-02-12 13:42 | disposition home or self-care (01) ==
LOC: LAB 13:45
PROVIDERS: PCP Family Medicine; Visit Provider Urology
DX: Z12.5 Encounter for screening for malignant neoplasm of prostate (principal)
CPT/HCPCS: 36415; G0103

== ENCOUNTER → 2023-02-17 10:24 | Outpatient (BNVA) | payer MEDICARE, OTHER, SELFPAY | PROVIDERS: PCP Family Medicine; Visit Provider Urology | DX: C67.9 Malignant neoplasm of bladder, unspecified (principal); N20.9 Urinary calculus, unspecified; C61 Malignant neoplasm of prostate; N30.40 Irradiation cystitis without hematuria | CPT/HCPCS: 52000; 81003; 99213 ==

== ENCOUNTER → 2023-03-18 14:06 | Outpatient (BNVA) | payer MEDICARE, OTHER, SELFPAY | PROVIDERS: PCP Family Medicine; Visit Provider Dermatology | DX: L57.0 Actinic keratosis (principal); L82.1 Other seborrheic keratosis; L81.4 Other melanin hyperpigmentation; Z85.820 Personal history of malignant melanoma of skin | CPT/HCPCS: 17000; 17003; 99213 ==

== ENCOUNTER → 2023-06-09 10:04 | Outpatient (BNVA) | payer MEDICARE, OTHER, SELFPAY | PROVIDERS: PCP Family Medicine; Visit Provider Family Medicine | DX: E11.9 Type 2 diabetes mellitus without complications (principal); C61 Malignant neoplasm of prostate; C67.9 Malignant neoplasm of bladder, unspecified | CPT/HCPCS: 80048; 83036 ==

== ENCOUNTER → 2023-12-02 12:50 | Outpatient (BNVA) | payer MEDICARE, OTHER, SELFPAY | PROVIDERS: PCP Family Medicine; Visit Provider Family Medicine | DX: E11.9 Type 2 diabetes mellitus without complications (principal); Z79.01 Long term (current) use of anticoagulants; E78.2 Mixed hyperlipidemia; I10 Essential (primary) hypertension | CPT/HCPCS: 80053; 80061; 83036; 85025; 85610 ==

== ENCOUNTER → 2023-12-19 11:31 | Outpatient (BNVA) | payer MEDICARE, OTHER, SELFPAY | PROVIDERS: PCP Family Medicine; Visit Provider Internal Medicine | DX: I48.21 Permanent atrial fibrillation (principal); E11.9 Type 2 diabetes mellitus without complications; I10 Essential (primary) hypertension; Z79.84 Long term (current) use of oral hypoglycemic drugs; Z79.01 Long term (current) use of anticoagulants; Z79.82 Long term (current) use of aspirin | CPT/HCPCS: 99214 ==

== ENCOUNTER 2024-01-01 07:14 | Outpatient (CLI) | payer MEDICARE, OTHER, SELFPAY ==
--- NOTE | 2024-01-01 07:30 | USCV_ITS ---
Vicente Cazares Age: 68 Gender: M : 1955 Exam Date: 01/01/2024 07:25 Ordering Phys: Jordan Chavez M.D ([email or web address]) Technologist: Exam Location: [facility] – [place] Indication: chest pain BP: 130 / 80 HR: 106 Rhythm: Sinus Technical Quality: Adequate MEASUREMENTS (Male / Female) Normal Values 2D ECHO LV Diastolic Diameter PLAX 4.6 cm 4.2 - 5.9 / 3.9 - 5.3 cm IVS Diastolic Thickness 1.4 cm 0.6 - 1.0 / 0.6 - 0.9 cm IVS Systolic Thickness 1.8 cm LVPW Diastolic Thickness 1.6 cm 0.6 - 1.0 / 0.6 - 0.9 cm LVPW Systolic Thickness 1.9 cm LVOT Diameter 2.0 cm LV Ejection Fraction 2D Teich 65.5 % LV Ejection Fraction MOD 2C 69.5 % LV Ejection Fraction 2C AL 69.4 % LA Diameter 5.3 cm RA Systolic Volume 4C AL 121.2 ml RA Systolic Volume 4C MOD 118.5 ml LA Sys Volume AL 170.3 cm cubed LA Sys Volume Index AL 75.9 cm cubed/m squared Aorta at Sinotubular Diameter 3.2 cm IVC Diameter 3.0 cm M-MODE LA Ao Ratio MM 1.1 AV Cusp Separation MM 1.5 cm DOPPLER AV Peak Velocity 290.0 cm/s LVOT Peak Velocity 86.0 cm/s AV Area Cont Eq vti 1.2 cm squared AV Area Cont Eq pk 0.9 cm squared MV Peak Velocity 133.0 cm/s MV Area PHT 5.1 cm squared Mitral E to A Ratio 4.1 TV Peak Velocity 230.0 cm/s TR Peak Velocity 284.0 cm/s TR Peak Gradient 32.3 mmHg TV Peak E Velocity 95.0 cm/s Right Atrial Pressure 3.0 mmHg Pulmonary Artery Systolic Pressu 35.3 mmHg PV Peak Velocity 142.0 cm/s FINDINGS Left Ventricle Left ventricle is normal size. LV systolic function is normal with EF of 60 to 65%. No regional wall motion abnormalities are seen. Right Ventricle Normal in size and function Right Atrium Dilated. Left Atrium Dilated. Mitral Valve Moderate mitral annular calcification. Mild mitral regurgitation. Aortic Valve Aortic valve is thickened and calcified. Mild to moderate aortic stenosis with aortic valve area 1.26 cm2 and mean gradient of 13mmHg. Tricuspid Valve Trace tricuspid regurgitation. Pulmonary artery systolic pressure is normal. Pulmonic Valve Mild pulmonic regurgitation. Pericardium Normal Aorta Normal in size IVC Appears to be dilated CONCLUSIONS LV systolic function is normal with EF of 60 to 65%. Biatrial enlargement Mild mitral regurgitation Mild to moderate aortic stenosis. Trace tricuspid regurgitation. Mild pulmonic regurgitation IVC appears to be dilated. Compared to prior echocardiogram from 2021, no significant changes are seen Jordan Chavez MD (Electronically Signed) Final Date: 10 Jan 2024 21:45 S
== END 2024-01-01 07:15 | disposition home or self-care (01) ==
LOC: RAD 07:15
PROVIDERS: PCP Family Medicine; Visit Provider Internal Medicine
DX: I35.0 Nonrheumatic aortic (valve) stenosis (principal); I51.7 Cardiomegaly; I34.0 Nonrheumatic mitral (valve) insufficiency; I37.1 Nonrheumatic pulmonary valve insufficiency
CPT/HCPCS: 93306

== ENCOUNTER → 2024-09-16 15:15 | Outpatient (BNVA) | payer MEDICARE, OTHER, SELFPAY | PROVIDERS: PCP Family Medicine; Visit Provider Internal Medicine | DX: I48.21 Permanent atrial fibrillation (principal); E11.9 Type 2 diabetes mellitus without complications; I10 Essential (primary) hypertension; Z79.01 Long term (current) use of anticoagulants; Z79.82 Long term (current) use of aspirin; Z79.84 Long term (current) use of oral hypoglycemic drugs | CPT/HCPCS: 99214 ==

== ENCOUNTER → 2024-10-11 13:24 | Outpatient (BNVA) | payer MEDICARE, OTHER, SELFPAY | PROVIDERS: PCP Family Medicine; Visit Provider Family Medicine | DX: E55.9 Vitamin D deficiency, unspecified (principal); Z79.01 Long term (current) use of anticoagulants; E78.2 Mixed hyperlipidemia; E11.9 Type 2 diabetes mellitus without complications; I48.21 Permanent atrial fibrillation; I10 Essential (primary) hypertension; R79.89 Other specified abnormal findings of blood chemistry; Z12.5 Encounter for screening for malignant neoplasm of prostate | CPT/HCPCS: 80053; 80061; 82043; 82306; 82607; 82728; 82746; 83036; 83540; 83735; 83880; 84439; 84443; 85025; G0103 ==

== ENCOUNTER → 2025-06-15 15:02 | Outpatient (BNVA) | payer MEDICARE, OTHER, SELFPAY | PROVIDERS: PCP Family Medicine; Visit Provider Internal Medicine | DX: I48.21 Permanent atrial fibrillation (principal); Z79.01 Long term (current) use of anticoagulants | CPT/HCPCS: 99213 ==